=== PATIENT | male | born 1980 | race Caucasian/White ===

== ENCOUNTER → 2021-05-07 | Outpatient (CLI) | payer OTHER ==
--- NOTE | 2021-05-07 09:23 | Diagnostic Imaging Report ---
PROCEDURE: US Venous Lower Ext Erick. TECHNIQUE: Multiple real-time grayscale images were obtained over the lower extremities in various projections, bilaterally. Additional duplex Doppler and color Doppler images were also obtained. INDICATION: Lower extremity edema. There is no evidence of right or left lower extremity DVT. Both lower extremity deep venous system shows normal compressibility with normal response to augmentation and Valsalva. No fluid collection or mass is detected. IMPRESSION: No evidence of right or left lower extremity DVT. Dictated by: Dictated on workstation # [id number]
== END ==
LOC: RAD 08:00
PROVIDERS: ATTEND Family Medicine
DX: R60.9 Edema, unspecified (principal); E66.9 Obesity, unspecified
CPT/HCPCS: 93970

== ENCOUNTER 2021-08-15 11:50 | Emergency (ER) | payer OTHER ==
[~2021-08-15] VITALS: Ht 187.9 cm; Wt 204.0 kg
[2021-08-15 12:17] LABS: BASOPHILS # (AUTO) 0.1 10^3/uL (0.0-0.1); BASOPHILS % (AUTO) 1 % (0-10); MEAN CORPUSCULAR HEMOGLOBIN 30 pg (25-34); NEUTROPHILS % (AUTO) 66 % (42-75)
[2021-08-15 12:19] LABS: EOSINOPHILS # (AUTO) 0.3 10^3/uL (0.0-0.3); EOSINOPHILS % (AUTO) 3 % (0-10); HEMATOCRIT 45 % (40-54); HEMOGLOBIN 15.8 g/dL (13.3-17.7); LYMPHOCYTES # (AUTO) 1.8 10^3/uL (1.0-4.0); LYMPHOCYTES % (AUTO) 21 % (12-44); MEAN CORPUSCULAR HGB CONC 35 g/dL (32-36); MEAN CORPUSCULAR VOLUME 86 fL (80-99); MEAN PLATELET VOLUME 11.5 fL (9.0-12.2); MONOCYTES # (AUTO) 0.8 10^3/uL (0.0-1.0); MONOCYTES % (AUTO) 9 % (0-12); NEUTROPHILS # (AUTO) 5.5 10^3/uL (1.8-7.8); PLATELET COUNT 119 10^3/uL (130-400); WHITE BLOOD COUNT 8.4 10^3/uL (4.3-11.0)
[2021-08-15] MEDS ORDERED: DIAZEPAM INJ 10 MG/2 ML (VALIUM) SYR IVP STA (12:26)
[2021-08-15 12:30] LABS: POTASSIUM 4.1 MMOL/L (3.6-5.0)
[2021-08-15] MEDS ORDERED: NS IV 1000 ML 1,000 ML IV SCH (12:30)
[2021-08-15] MEDS ORDERED: ONDANSETRON 4 MG/2 ML (SDV) Z0FRAN IVP ONE (12:30)
[2021-08-15] MEDS ORDERED: MECLIZINE 25 MG (ANTIVERT) TAB PO ONE (12:30)
[2021-08-15 12:35] LABS: CREATININE SERUM 0.82 MG/DL (0.60-1.30)
--- NOTE | 2021-08-15 12:36 | ED General ---
General Chief Complaint: Dizziness/Syncope Stated Complaint: DIZZINESS Nursing Triage Note: PT BROGUHT IN BY [facility] FROM HOME WITH COMPLAINT OF DIZZINESS. STATES STARTED THIS MORNING AFTER GETTING OUT OF HIS TRUCK. AND HAS WORSENED. Source of Information: Patient, Family () Exam Limitations: No Limitations History of Present Illness Date Seen by Provider: Aug 15, 2021 Time Seen by Provider: 12:05 Initial Comments Patient is a 40-year-old male who presents to the emergency department today with a chief complaint of dizziness. Patient states that he works overnight shifts as a [employer]. He only got about 4 to 5 hours of sleep yesterday. He got off at 7 went home roused his family for breakfast. He states at that time he was not feeling great. When they were going into have breakfast he was not able to eat due to nausea and when he stood up he felt very dizzy like the room was spinning. He was nauseous. He denies chest pain or shortness of breath. He denies headache, vision changes or speech difficulties. He states his hearing out of his left ear is a little off. He did have a viral illness about 2 weeks ago, upper respiratory congestion with cough. He was symptomatic with the virus for approximately 2 weeks before that until he sought medical treatment and was treated with a "z pack". He has a history of hypertension and type 2 diabetes. His blood sugar at the time of symptom onset was between 105 and 116. No recent fevers or chills. No problems with bowel or bladder. No leg swelling, joint pains or rashes. Every time he moves he becomes very dizzy. All other review of systems reviewed and negative except as stated Timing/Duration: 1-3 Hours Severity: Moderate Associated Systoms: Malaise, Nausea/Vomiting, Other (dizzy) Allergies and Home Medications Allergies Coded Allergies: Amoxicillin (Unverified Allergy, Mild, HIVES, 11/26/08) Patient Home Medication List Home Medication List Reviewed: Yes Meclizine HCl (Meclizine HCl) 25 Mg Tablet, 25 MG PO Q6H PRN for dizziness Prescribed by: LILIYA HANLEY on 08/15/21 1246 Ondansetron (Ondansetron Odt) 4 Mg Tab.rapdis, 4 MG PO Q8H PRN for nausea Prescribed by: LILIYA HANLEY on 08/15/21 1246 Review of Systems Review of Systems Constitutional: see HPI EENTM: ear pain (left ear fullness) Respiratory: cough (slight) Cardiovascular: no symptoms reported Gastrointestinal: nausea Genitourinary: no symptoms reported Musculoskeletal: no symptoms reported Skin: no symptoms reported Psychiatric/Neurological: Denies Headache; Other (dizziness) All Other Systems Reviewed Negative Unless Noted: Yes Past Dsaemvn-Bkhvgs-Lutvmx Hx Patient Social History Tobacco Use?: Yes Tobacco type used: Cigarettes Smoking Status: Current Everyday Smoker Use of E-Cig and/or Vaping dev: No Substance use?: No Alcohol Use?: Yes Alcohol Frequency: Once in a while Pt feels they are or have been: No Immunizations Up To Date Influenza Vaccine Up-to-Date: Yes; Up-to-Date First/Initial COVID19 Vaccinat: 2020 Second COVID19 Vaccination Cyrus: 2020 Past Medical History Reproductive Disorders: No Physical Exam Vital Signs Vital Signs - First Documented 08/15/21 11:53 Temp 36.3 Pulse 77 Resp 17 B/P (MAP) 118/86 (97) Pulse Ox 98 O2 Delivery Room Air Capillary Refill : Less Than 3 Seconds Height, Weight, BMI Height: '" Weight: lbs. oz. kg; 57.00 BMI Method: General Appearance: No Apparent Distress, WD/WN Eyes: Bilateral Eye Normal Inspection, Bilateral Eye PERRL, Bilateral Eye EOMI HEENT: PERRL/EOMI, Normal ENT Inspection, Pharynx Normal, TM Abnormal (L) (+ serous effusion), TM Abnormal (R) (occluded by cerumen) Neck: Normal Inspection, Supple Respiratory: Lungs Clear, Normal Breath Sounds, No Accessory Muscle Use, No Respiratory Distress Cardiovascular: Regular Rate, Rhythm, Normal Peripheral Pulses Gastrointestinal: Non Tender, Soft Extremity: Normal Capillary Refill, Normal Inspection, Normal Range of Motion Neurologic/Psychiatric: Alert, Oriented x3, No Motor/Sensory Deficits, Normal Mood/Affect, lining brusher II-XII Norm as Tested, Other (+ nystagmus bilaterally (mild) seems to fatigue each way, causes symptoms bilaterally; ) Skin: Normal Color, Warm/Dry Progress/Results/Core Measures Suspected Sepsis SIRS Temperature: Pulse: 77 Respiratory Rate: 17 Laboratory Tests 08/15/21 11:54: White Blood Count 8.4 Blood Pressure 118 /86 Mean: 97 Laboratory Tests 08/15/21 11:54: Creatinine 0.82, Platelet Count 119L Results/Orders Lab Results Laboratory Tests Test 08/15/21 11:54 Range/Units White Blood Count 8.4 4.3-11.0 10^3/uL Red Blood Count 5.21 4.30-5.52 10^6/uL Hemoglobin 15.8 13.3-17.7 g/dL Hematocrit 45 40-54 % Mean Corpuscular Volume 86 80-99 fL Mean Corpuscular Hemoglobin 30 25-34 pg Mean Corpuscular Hemoglobin Concent 35 32-36 g/dL Red Cell Distribution Width 12.7 10.0-14.5 % Platelet Count 119 L 130-400 10^3/uL Mean Platelet Volume 11.5 9.0-12.2 fL Immature Granulocyte % (Auto) 1 % Neutrophils (%) (Auto) 66 42-75 % Lymphocytes (%) (Auto) 21 12-44 % Monocytes (%) (Auto) 9 0-12 % Eosinophils (%) (Auto) 3 0-10 % Basophils (%) (Auto) 1 0-10 % Neutrophils # (Auto) 5.5 1.8-7.8 10^3/uL Lymphocytes # (Auto) 1.8 1.0-4.0 10^3/uL Monocytes # (Auto) 0.8 0.0-1.0 10^3/uL Eosinophils # (Auto) 0.3 0.0-0.3 10^3/uL Basophils # (Auto) 0.1 0.0-0.1 10^3/uL Immature Granulocyte # (Auto) 0.0 0.0-0.1 10^3/uL Percent Immature Platelet Fraction 5.5 0.0-7.6 % Sodium Level 137 135-145 MMOL/L Potassium Level 4.1 3.6-5.0 MMOL/L Chloride Level 103 98-107 MMOL/L Carbon Dioxide Level 22 21-32 MMOL/L Anion Gap 12 5-14 MMOL/L Blood Urea Nitrogen 16 7-18 MG/DL Creatinine 0.82 0.60-1.30 MG/DL Estimat Glomerular Filtration Rate 114 BUN/Creatinine Ratio 20 Glucose Level 112 H 70-105 MG/DL Calcium Level 9.0 8.5-10.1 MG/DL My Orders Orders - LILIYA HANLEY MD Ed Iv/Invasive Line Start (08/15/21 12:09) Cbc With Automated Diff (08/15/21 12:09) Basic Metabolic Panel (08/15/21 12:09) Ns Iv 1000 Ml (Sodium Chloride 0.9%) (08/15/21 12:30) Diazepam Injection (Valium Injection) (08/15/21 12:26) Ondansetron Injection (Zofran Injectio (08/15/21 12:30) Meclizine Tablet (Antivert Tablet) (08/15/21 12:30) Medications Given in ED Current Medications Medications Dose Ordered Sig/Erin Route Start Time Stop Time Status Last Admin Dose Admin Meclizine HCl 25 mg ONCE ONCE PO 08/15/21 12:30 08/15/21 12:31 DC 08/15/21 12:52 25 MG Ondansetron HCl 8 mg ONCE ONCE IVP 08/15/21 12:30 08/15/21 12:31 DC 08/15/21 12:52 8 MG Vital Signs/I&O 08/15/21 11:53 Temp 36.3 Pulse 77 Resp 17 B/P (MAP) 118/86 (97) Pulse Ox 98 O2 Delivery Room Air Capillary Refill : Less Than 3 Seconds Blood Pressure Mean: 97 Progress Note #1: Time: 12:44 Progress Note patient is resting comfortably, sleeping. Labs reviewed with is . he will need to follow up with his PCP regarding slightly low platelets. Anticipate d/c to home with zofran and meclizine. Progress Note #2: Time: 13:35 Progress Note Patient awoken and reevaluated. I had him sit up and turn his head. He feels almost 100% better. Almost entirely asymptomatic. Vital signs remained stable. I reviewed once again discharge instructions. He verbalized understanding, we will give him 2 nights off of work. I advised him if he is asymptomatic tomorrow he can go to work tomorrow night but he needs to be off tonight. All questions are sought and answered. Patient is stable and improved at discharge. Departure Impression Primary Impression: Benign positional vertigo Qualified Codes: H81.13 - Benign paroxysmal vertigo, bilateral Disposition: 01 HOME, SELF-CARE Condition: Improved Departure-Patient Inst. Decision time for Depature: 12:38 Referrals: NO,LOCAL PHYSICIAN (PCP/Family) Primary Care Physician Patient Instructions: Vertigo (a Type of Dizziness) (DC) Add. Discharge Instructions: Drink plenty of fluids to stay well-hydrated. You can take dysa-jfr-xevytsm Zyrtec or Mackenzie as needed for congestion in your sinuses and ear fullness. You can also use Coricidin HBP as a decongestant, this is safe and high blood pressure Take the meclizine 1 every 6 hours as needed for dizziness. Also Zofran 4 mg every 8 hours as needed for nausea. If you develop a severe headache especially with fever, persistent or worsening dizziness, persistent or worsening nausea/vomiting please come back to the emergency department for reevaluation. You should expect your symptoms to last 2 to 3 days. If they are not getting better please come back to the emergency department for reevaluation or follow- up with your primary care physician. Scripts Ondansetron (Ondansetron Odt) 4 Mg Tab.rapdis 4 MG PO Q8H PRN for nausea, #20 TAB Prov: LILIYA HANLEY MD 08/15/21 Meclizine HCl (Meclizine HCl) 25 Mg Tablet 25 MG PO Q6H PRN for dizziness, #20 TAB Prov: LILIYA HANLEY MD 08/15/21 Work/School Note: Work Release Form Date Seen in the Emergency Department: Aug 15, 2021 Return to Work: Aug 17, 2021 LILIYA HANLEY MD Aug 15, 2021 12:36
[2021-08-15] MEDS ORDERED: ONDA4TAB11 PO (12:46)
[2021-08-15] MEDS ORDERED: MECL-149 PO (12:46)
[2021-08-15 13:51] VITALS: BP 110/77
== END 2021-08-15 13:51 | disposition home or self-care (01) ==
LOC: EDUNIT# 11:50 → ER 11:52
DX: H81.13 Benign paroxysmal vertigo, bilateral (principal); D69.6 Thrombocytopenia, unspecified; F17.210 Nicotine dependence, cigarettes, uncomplicated
CPT/HCPCS: 36415; 80048; 85025

== ENCOUNTER → 2022-12-02 | Outpatient (CLI) | payer OTHER ==
[~2022-12-02] MED LIST: BARIUM for suspension 96% w/w (Vanilla Silq Medium Density) PO ONE; BARIUM for suspension 98% w/w (Vanilla Silq High Density) PO ONE; MECL-149 PO; ONDA4TAB11 PO
--- NOTE | 2022-12-02 10:53 | Diagnostic Imaging Report ---
Indication: Preop for gastric sleeve surgery. Patient ingested effervescent crystals as well as thin and thick barium and imaging of the esophagus, stomach and proximal small bowel was performed. A total of 30 seconds of fluoroscopic time was utilized. Referenced air Kerma was 90 mGy. 34 images were obtained. The esophagus has a smooth contour. No mass or stricture is identified. No gastroesophageal reflux or hiatal hernia was demonstrated. The stomach has a normal configuration. There is prompt emptying into the small bowel. Duodenal bulb is without deformity. The visualized small bowel loops are unremarkable. IMPRESSION: Unremarkable upper gastrointestinal study. Dictated by: Dictated on workstation # [id number]
== END ==
LOC: RAD 08:54
PROVIDERS: ATTEND Surgery
DX: K21.9 Gastro-esophageal reflux disease without esophagitis (principal)
CPT/HCPCS: 74246